=== PATIENT | female | born 1980 | race Caucasian/White ===

== ENCOUNTER 2020-02-23 19:21 | Observation (INO) | payer OTHER ==
[~2020-02-23] VITALS: Ht 154.9 cm; Wt 67.1 kg
[2020-02-23 20:47] VITALS: BP 103/63
== END 2020-02-23 21:45 | disposition home or self-care (01) ==
LOC: MLD 19:21
PROVIDERS: ADMIT Obstetrics & Gynecology; ATTEND Obstetrics & Gynecology
DX: O26.852 Spotting complicating pregnancy, second trimester (principal); O26.892 Other specified pregnancy related conditions, second trimester; R10.9 Unspecified abdominal pain; Z3A.21 21 weeks gestation of pregnancy
CPT/HCPCS: 76817; 81000; G0378; Q0092

== ENCOUNTER 2020-04-12 02:25 | Observation (INO) | payer OTHER ==
[~2020-04-12] VITALS: Ht 154.9 cm; Wt 73.9 kg
== END 2020-04-12 05:30 | disposition home or self-care (01) ==
LOC: MLD 02:25
PROVIDERS: ADMIT Obstetrics & Gynecology; ATTEND Obstetrics & Gynecology
DX: O36.8130 Decreased fetal movements, third trimester, not applicable or unspecified (principal); O26.893 Other specified pregnancy related conditions, third trimester; R10.9 Unspecified abdominal pain; O09.523 Supervision of elderly multigravida, third trimester; Z88.6 Allergy status to analgesic agent; Z3A.28 28 weeks gestation of pregnancy; X99.1XXA Assault by knife, initial encounter; Y93.89 Activity, other specified; Y92.009 Unspecified place in unspecified non-institutional (private) residence as the place of occurrence of the external cause; Y99.8 Other external cause status
CPT/HCPCS: 76805; 81000; G0378; Q0092

== ENCOUNTER 2020-06-06 17:05 | Observation (INO) | payer OTHER, SELFPAY ==
[~2020-06-06] VITALS: Ht 154.9 cm; Wt 74.4 kg
[~2020-06-06 17:05] MED LIST: FERR-212 PO; PREN-537 PO
[2020-06-06 17:40] VITALS: BP 98/66
[2020-06-06] MEDS ORDERED: LACTATED RINGERS 1,000 ML IV SCH (18:05)
[2020-06-06 18:37] LABS: BASOPHILS # (AUTO) 0.1 K/uL (0.00-0.22); BASOPHILS % (AUTO) 0.7 % (0.0-2.0); EOSINOPHILS # (AUTO) 0.1 K/uL (0-0.4); EOSINOPHILS % (AUTO) 0.7 % (0.0-4.0); HEMATOCRIT 36.1 % (36-48); HEMOGLOBIN 12.1 g/dL (12.0-16.0); LYMPHOCYTES # (AUTO) 1.3 K/uL (2.5-16.5); LYMPHOCYTES % (AUTO) 13.4 % (20.5-51.1); MEAN CORPUSCULAR HEMOGLOBIN 28 pg (27-31); MEAN CORPUSCULAR HGB CONC 33 g/dL (33-37); MEAN CORPUSCULAR VOLUME 84.8 fL (80-94); MONOCYTES # (AUTO) 0.7 K/uL (0.8-1.0); MONOCYTES % (AUTO) 7.2 % (1.7-9.3); NEUTROPHILS # (AUTO) 7.5 K/uL (1.8-7.7); PLATELET COUNT (AUTO) 249 K/uL (140-450); RED BLOOD CELL COUNT(AUTO) 4.26 MIL/uL (4.20-5.40); RED CELL DISTRIBUTION WIDTH 14.1 % (11.6-13.7); WHITE BLOOD COUNT (AUTO) 9.6 K/uL (4.8-10.8)
[2020-06-06 18:37] LABS: APPEARANCE,URINE CLEAR (CLEAR); BILIRUBIN,URINE NEGATIVE (NEGATIVE); BLOOD, URINE NEGATIVE (NEGATIVE); COLOR,URINE YELLOW (YELLOW); LEUKOCYTE ESTERASE ,URINE NEGATIVE (NEGATIVE); NITRITE, URINE NEGATIVE (NEGATIVE); UGLUCOSE NEGATIVE (NEGATIVE)
[2020-06-06] MEDS ORDERED: NIFEdipine 10 MG CAPLF ONE (19:01)
[2020-06-06 19:05] LABS: ALBUMIN 2.8 g/dL (3.4-5.0); ANION GAP 13.9 (8-16); CARBON DIOXIDE 24.9 mmol/L (21-32); CREATININE 0.5 mg/dL (0.6-1.3); POTASSIUM 3.8 mmol/L (3.5-5.1); TOTAL BILIRUBIN 0.2 mg/dL (0.0-1.0)
[2020-06-07] MEDS: NIFEdipine 10 MG CAPLF PO SCH ×2 (01:00→06:58)
== END 2020-06-07 09:15 | disposition home or self-care (01) ==
LOC: MLD 17:05
PROVIDERS: ADMIT Obstetrics & Gynecology; ATTEND Obstetrics & Gynecology
DX: O60.03 Preterm labor without delivery, third trimester (principal); Z20.828 Contact with and (suspected) exposure to other viral communicable diseases; O40.3XX0 Polyhydramnios, third trimester, not applicable or unspecified; O09.523 Supervision of elderly multigravida, third trimester; Z3A.36 36 weeks gestation of pregnancy
CPT/HCPCS: 36415; 59025; 80053; 81003; 85025; 86592; 86886; 86900; 86901; 87426; G0378; J7120

== ENCOUNTER 2020-06-12 22:42 | Inpatient (IN) | payer OTHER, SELFPAY ==
[~2020-06-12] VITALS: Ht 154.9 cm; Wt 74.4 kg
[2020-06-12] MEDS ORDERED: OXYTOCIN 20 UNITS in NACL 0.9% 1,000 ML IV SCH (23:10)
[2020-06-12] MEDS ORDERED: MORPHINE SULFATE 4 MG/ML SYR IVP PRN (23:30)
[2020-06-12] MEDS ORDERED: OXYTOCIN 20 UNITS in LACTATED RINGERS 1,000 ML IM SCH (23:30)
[2020-06-12] MEDS ORDERED: ONDANSETRON 4 MG/2 ML VIAL IVP PRN (23:30)
[2020-06-12 23:39] LABS: BASOPHILS % (AUTO) 0.5 % (0.0-2.0); EOSINOPHILS % (AUTO) 0.4 % (0.0-4.0); HEMATOCRIT 32.5 % (36-48); HEMOGLOBIN 11.2 g/dL (12.0-16.0); LYMPHOCYTES # (AUTO) 1.2 K/uL (2.5-16.5); LYMPHOCYTES % (AUTO) 13.8 % (20.5-51.1); MEAN CORPUSCULAR HEMOGLOBIN 29 pg (27-31); MEAN CORPUSCULAR HGB CONC 35 g/dL (33-37); MEAN CORPUSCULAR VOLUME 83.1 fL (80-94); MONOCYTES # (AUTO) 0.8 K/uL (0.8-1.0); MONOCYTES % (AUTO) 8.8 % (1.7-9.3); NEUTROPHILS # (AUTO) 6.7 K/uL (1.8-7.7); NEUTROPHILS % (AUTO) 76.5 % (42.2-75.2); PLATELET COUNT (AUTO) 230 K/uL (140-450); RED BLOOD CELL COUNT(AUTO) 3.91 MIL/uL (4.20-5.40); WHITE BLOOD COUNT (AUTO) 8.8 K/uL (4.8-10.8)
[2020-06-12 23:39] LABS: APPEARANCE,URINE CLEAR (CLEAR); BILIRUBIN,URINE NEGATIVE (NEGATIVE); BLOOD, URINE TRACE-I (NEGATIVE); COLOR,URINE YELLOW (YELLOW); LEUKOCYTE ESTERASE ,URINE NEGATIVE (NEGATIVE); NITRITE, URINE NEGATIVE (NEGATIVE); UGLUCOSE NEGATIVE (NEGATIVE)
[2020-06-12] MEDS: LACTATED RINGERS 1,000 ML IV SCH (23:51)
[2020-06-12 23:57] LABS: ALBUMIN 2.7 g/dL (3.4-5.0); CARBON DIOXIDE 21.4 mmol/L (21-32); CREATININE 0.7 mg/dL (0.6-1.3); POTASSIUM 3.4 mmol/L (3.5-5.1); TOTAL BILIRUBIN 0.2 mg/dL (0.0-1.0)
[2020-06-12 23:59] LABS: RBC,URINE 0-5 /HPF (0-5); WBC,URINE 0-5 /HPF (0-5)
[2020-06-12] MEDS ORDERED: AMPICILLIN 2,000 MG VIAL ONE (23:59)
[2020-06-13] MEDS ORDERED: AMPICILLIN 2,000 MG in NACL 0.9% 100 ML IV SCH ×2
[2020-06-13] MEDS ORDERED: MISOPROSTOL 25 MCG TAB VG PRN
[2020-06-13 01:07] VITALS: BP 109/67
[2020-06-13] MEDS ORDERED: AMPICILLIN 1,000 MG VIAL ONE ×2 (03:31→07:37)
[2020-06-13] MEDS ORDERED: OXYTOCIN 20 UNITS/LR PREMIX 1,000 ML IV ONE (03:36)
[2020-06-13] MEDS ORDERED: LIDOCAINE MPF 1% 10 MG/ML VIAL INJ SCH (03:45)
[2020-06-13] MEDS ORDERED: METHYLERGONOVINE 0.2 MG/ML AMP IM SCH (03:45)
[2020-06-13] MEDS ORDERED: AMPICILLIN 1,000 MG in NACL 0.9% 50 ML IV SCH (04:00)
[2020-06-13] MEDS: LACTATED RINGERS 1,000 ML IV SCH (08:01)
--- NOTE | 2020-06-13 09:17 | NUR ---
PATIENT HAS BEEN SCREENED AND CATEGORIZED LOW NUTRITION RISK. PATIENT WILL BE SEEN WITHIN 7 DAYS OF ADMISSION. 06/19/[address]
[2020-06-13] MEDS ORDERED: LIDOCAINE 1% 500 MG/50 ML VIAL ONE (11:39)
[2020-06-13] MEDS ORDERED: DOCUSATE SODIUM 100 MG GELCAP PO PRN (13:25)
[2020-06-13] MEDS ORDERED: bisacodyL 5 MG TABEC PO PRN (13:25)
[2020-06-13] MEDS ORDERED: METHYLERGONOVINE 0.2 MG TAB PO PRN (13:25)
[2020-06-13] MEDS ORDERED: IBUPROFEN 800 MG TAB PO PRN (13:25)
[2020-06-13] MEDS ORDERED: MEASLES, MUMPS, AND RUBELLA 1 VIAL SQVAC PRN (13:25)
[2020-06-13] MEDS ORDERED: METHYLERGONOVINE 0.2 MG/ML AMP IM PRN (13:25)
[2020-06-13] MEDS ORDERED: SIMETHICONE 80 MG TAB.CHEW PO PRN (13:25)
[2020-06-13] MEDS ORDERED: OXYTOCIN 10 UNITS/ML VIAL IM PRN (13:25)
[2020-06-13] MEDS ORDERED: BENZOCAINE/MENTHOL 20%-0.5% 60 GM CAN TP PRN (13:25)
[2020-06-13] MEDS ORDERED: IBUPROFEN 600 MG TAB PO PRN (13:25)
[2020-06-13] MEDS ORDERED: FLU VACCINE QS2020-21 0.5 ML SYR IMVAC PRN (22:05)
[2020-06-14 08:16] LABS: HEMATOCRIT 32.4 % (36-48); HEMOGLOBIN 11.1 g/dL (12.0-16.0)
== END 2020-06-14 15:30 | disposition home or self-care (01) | DRG 560 ==
LOC: MLD 22:42 → MFCC 06-13 14:15
PROVIDERS: ADMIT Obstetrics & Gynecology; ATTEND Obstetrics & Gynecology
PROC: 10E0XZZ Delivery of Products of Conception, External Approach (ICD-10-PCS; principal; 2020-06-13)
PROC: 3E033VJ Introduction of Other Hormone into Peripheral Vein, Percutaneous Approach (ICD-10-PCS; 2020-06-13)
PROC: 0HQ9XZZ Repair Perineum Skin, External Approach (ICD-10-PCS; 2020-06-13)
PROC: 10907ZC Drainage of Amniotic Fluid, Therapeutic from Products of Conception, Via Natural or Artificial Opening (ICD-10-PCS; 2020-06-13)
PROC: 3E02340 Introduction of Influenza Vaccine into Muscle, Percutaneous Approach (ICD-10-PCS; 2020-06-13)
PROC: 3E0234Z Introduction of Serum, Toxoid and Vaccine into Muscle, Percutaneous Approach (ICD-10-PCS; 2020-06-13)
PROC: 3E0134Z Introduction of Serum, Toxoid and Vaccine into Subcutaneous Tissue, Percutaneous Approach (ICD-10-PCS; 2020-06-13)
DX: O70.0 First degree perineal laceration during delivery (principal); O40.3XX0 Polyhydramnios, third trimester, not applicable or unspecified; O99.824 Streptococcus B carrier state complicating childbirth; O99.02 Anemia complicating childbirth; Z3A.36 36 weeks gestation of pregnancy; Z37.0 Single live birth; D62 Acute posthemorrhagic anemia; O60.14X0 Preterm labor third trimester with preterm delivery third trimester, not applicable or unspecified; Z23 Encounter for immunization; Z88.6 Allergy status to analgesic agent
CPT/HCPCS: 36415; 59409; 76815; 80053; 81001; 85018; 85025; 86592; 86886; 86900; 86901; 87653-90; 90715; J0290; J2001; J2270; J2405; J2590; J7120; Q0092

== ENCOUNTER 2021-07-06 19:50 | Observation (INO) | payer OTHER, SELFPAY ==
[~2021-07-06] VITALS: Ht 154.9 cm; Wt 67.6 kg
[2021-07-06 20:40] VITALS: BP 97/54
[2021-07-06] MEDS: BETAMETH ACET/BETAMETH NA PH 30 MG/5 ML VIAL IM SCH (20:54)
[2021-07-06] MEDS ORDERED: BETAMETH ACET/BETAMETH NA PH 30 MG/5 ML VIAL IM SCH (21:00)
[2021-07-06 21:12] LABS: BASOPHILS % (AUTO) 0.2 % (0.0-2.0); EOSINOPHILS # (AUTO) 0.1 K/uL (0-0.4); EOSINOPHILS % (AUTO) 1.3 % (0.0-4.0); HEMATOCRIT 32.1 % (36-48); HEMOGLOBIN 11.1 g/dL (12.0-16.0); LYMPHOCYTES # (AUTO) 1.3 K/uL (2.5-16.5); LYMPHOCYTES % (AUTO) 15.6 % (20.5-51.1); MEAN CORPUSCULAR HEMOGLOBIN 29 pg (27-31); MEAN CORPUSCULAR HGB CONC 35 g/dL (33-37); MEAN CORPUSCULAR VOLUME 84.8 fL (80-94); MONOCYTES # (AUTO) 0.5 K/uL (0.8-1.0); MONOCYTES % (AUTO) 6.7 % (1.7-9.3); NEUTROPHILS # (AUTO) 6.2 K/uL (1.8-7.7); NEUTROPHILS % (AUTO) 76.2 % (42.2-75.2); PLATELET COUNT (AUTO) 253 K/uL (140-450); RED BLOOD CELL COUNT(AUTO) 3.78 MIL/uL (4.20-5.40); RED CELL DISTRIBUTION WIDTH 14.1 % (11.6-13.7); WHITE BLOOD COUNT (AUTO) 8.2 K/uL (4.8-10.8)
[2021-07-06 21:29] LABS: ALBUMIN 2.7 g/dL (3.4-5.0); ANION GAP 11.3 (8-16); CARBON DIOXIDE 26.3 mmol/L (21-32); CREATININE 0.5 mg/dL (0.6-1.3); POTASSIUM 3.6 mmol/L (3.5-5.1); TOTAL BILIRUBIN 0.2 mg/dL (0.0-1.0)
[2021-07-06 21:47] LABS: APPEARANCE,URINE CLEAR (CLEAR); BILIRUBIN,URINE NEGATIVE (NEGATIVE); BLOOD, URINE TRACE-I (NEGATIVE); COLOR,URINE YELLOW (YELLOW); LEUKOCYTE ESTERASE ,URINE 1+ (NEGATIVE); NITRITE, URINE NEGATIVE (NEGATIVE); PH,URINE 6.5 (5.0-9.0); UGLUCOSE NEGATIVE (NEGATIVE)
[2021-07-06 21:53] LABS: RBC,URINE 0-5 /HPF (0-5); WBC,URINE 0-5 /HPF (0-5)
--- NOTE | 2021-07-07 09:16 | NUR ---
PATIENT HAS BEEN SCREENED AND CATEGORIZED LOW NUTRITION RISK. PATIENT WILL BE SEEN WITHIN 7 DAYS OF ADMISSION. 07/13/[address]
[2021-07-07] MEDS: LACTATED RINGERS 1,000 ML IV SCH ×2 (09:54→17:51)
[2021-07-07] MEDS ORDERED: CEPH-588 PO (13:21)
[2021-07-07] MEDS ORDERED: BETAMETH ACET/BETAMETH NA PH 30 MG/5 ML VIAL IM ONE (20:24)
[2021-07-07] MEDS: BETAMETH ACET/BETAMETH NA PH 30 MG/5 ML VIAL IM SCH (20:45)
== END 2021-07-07 21:25 | disposition home or self-care (01) ==
LOC: MLD 19:50
PROVIDERS: ADMIT Obstetrics & Gynecology; ATTEND Obstetrics & Gynecology
DX: O23.02 Infections of kidney in pregnancy, second trimester (principal); O09.512 Supervision of elderly primigravida, second trimester; O09.92 Supervision of high risk pregnancy, unspecified, second trimester; Z3A.26 26 weeks gestation of pregnancy
CPT/HCPCS: 36415; 59025; 80053; 81001; 85025; 86592; 87086; 87653; 96361; 96365; 96372; G0378; J0696; J0702; J7060

== ENCOUNTER 2021-08-29 14:03 | Observation (INO) | payer OTHER, SELFPAY ==
[~2021-08-29] VITALS: Ht 165.1 cm; Wt 69.9 kg
[~2021-08-29 14:03] MED LIST changes: +CEPH-588 PO
[2021-08-29 14:53] VITALS: BP 106/61
[2021-08-29] MEDS ORDERED: LACTATED RINGERS 1,000 ML IV SCH ×2 (15:20→16:20)
== END 2021-08-29 17:35 | disposition home or self-care (01) ==
LOC: MLD 14:03
PROVIDERS: ADMIT Obstetrics & Gynecology; ATTEND Obstetrics & Gynecology
DX: O62.9 Abnormality of forces of labor, unspecified (principal); Z20.822 Contact with and (suspected) exposure to COVID-19; O26.893 Other specified pregnancy related conditions, third trimester; L29.9 Pruritus, unspecified; Z3A.34 34 weeks gestation of pregnancy
CPT/HCPCS: 59025; 76817; 81000; 87426; 96360; G0378; Q0092; 36415

== ENCOUNTER 2022-07-27 10:45 | Emergency (ER) | payer OTHER ==
[~2022-07-27] VITALS: Ht 154.9 cm; Wt 73.5 kg
[~2022-07-27 10:45] MED LIST changes: -CEPH-588 PO; -FERR-212 PO
[2022-07-27 11:18] VITALS: BP 100/74
[2022-07-27 12:10] LABS: BASOPHILS % (AUTO) 0.5 % (0.0-2.0); EOSINOPHILS # (AUTO) 0.1 K/uL (0-0.4); EOSINOPHILS % (AUTO) 1.4 % (0.0-4.0); HEMATOCRIT 37.4 % (36-48); HEMOGLOBIN 12.3 g/dL (12.0-16.0); LYMPHOCYTES # (AUTO) 1.5 K/uL (2.5-16.5); LYMPHOCYTES % (AUTO) 22.1 % (20.5-51.1); MEAN CORPUSCULAR HEMOGLOBIN 27 pg (27-31); MEAN CORPUSCULAR HGB CONC 33 g/dL (33-37); MEAN CORPUSCULAR VOLUME 81.3 fL (80-94); MONOCYTES # (AUTO) 0.4 K/uL (0.8-1.0); MONOCYTES % (AUTO) 6.4 % (1.7-9.3); NEUTROPHILS # (AUTO) 4.7 K/uL (1.8-7.7); NEUTROPHILS % (AUTO) 69.6 % (42.2-75.2); PLATELET COUNT (AUTO) 258 K/uL (140-450); RED CELL DISTRIBUTION WIDTH 13.4 % (11.6-13.7); WHITE BLOOD COUNT (AUTO) 6.7 K/uL (4.8-10.8)
[2022-07-27 12:16] LABS: APPEARANCE,URINE HAZY (CLEAR); BILIRUBIN,URINE NEGATIVE (NEGATIVE); BLOOD, URINE 3+ (NEGATIVE); COLOR,URINE YELLOW (YELLOW); LEUKOCYTE ESTERASE ,URINE 1+ (NEGATIVE); NITRITE, URINE NEGATIVE (NEGATIVE); UGLUCOSE NEGATIVE (NEGATIVE)
[2022-07-27 12:40] LABS: WBC,URINE 20-60 /HPF (0-5)
[2022-07-27 12:58] LABS: ALBUMIN 3.5 g/dL (3.4-5.0); ANION GAP 11.7 (8-16); CARBON DIOXIDE 28.1 mmol/L (21-32); CREATININE 0.6 mg/dL (0.6-1.3); POTASSIUM 3.8 mmol/L (3.5-5.1); TOTAL BILIRUBIN 0.3 mg/dL (0.0-1.0)
[2022-07-27] MEDS ORDERED: NITR100C7 PO (15:24)
[2022-07-27] MEDS ORDERED: NAPR-54 PO (15:24)
[2022-07-27 15:30] VITALS: BP 144/70
--- NOTE | 2022-07-27 15:31 | NUR ---
Patient discharged with v/s stable. Written and verbal after care instructions given and explained. Patient alert, oriented and verbalized understanding of instructions. Ambulatory with steady gait. All questions addressed prior to discharge. ID band removed. Patient advised to follow up with PMD. Rx of MACROBID, NAPROSYN given. Patient educated on indication of medication including possible reaction and side effects. Opportunity to ask questions provided and answered.
== END 2022-07-27 15:31 | disposition home or self-care (01) ==
LOC: MED 10:45
DX: N39.0 Urinary tract infection, site not specified (principal); R10.2 Pelvic and perineal pain
CPT/HCPCS: 36415; 80053; 81001; 81025; 83690; 85025; 87086; 99284

== ENCOUNTER 2022-10-28 08:58 | Emergency (ER) | payer OTHER ==
[~2022-10-28] VITALS: Ht 154.9 cm; Wt 72.6 kg
[~2022-10-28 08:58] MED LIST changes: +NAPR-54 PO; +NITR100C7 PO
[2022-10-28 09:01] VITALS: BP 123/72
--- NOTE | 2022-10-28 09:15 | NUR ---
Dr. Perez evaluating patient at bedside.
--- NOTE | 2022-10-28 09:18 | NUR ---
42 y/o female bib self with c/o right lower back pain x 2 months. Per patient, pain has been increasing and has difficulty ambulating and moving. Denies any trauma or injury. Patient denies any fever, shills or SOB. Medical History: Denies NKDA
[2022-10-28] MEDS ORDERED: KETOROLAC 30 MG/ML VIAL IM ONE (09:20)
--- NOTE | 2022-10-28 09:31 | NUR ---
Lab at bedside.
[2022-10-28 09:40] LABS: BASOPHILS % (AUTO) 0.4 % (0.0-2.0); EOSINOPHILS # (AUTO) 0.1 K/uL (0-0.4); EOSINOPHILS % (AUTO) 0.9 % (0.0-4.0); HEMATOCRIT 36.9 % (36-48); HEMOGLOBIN 12.4 g/dL (12.0-16.0); LYMPHOCYTES # (AUTO) 1.4 K/uL (2.5-16.5); LYMPHOCYTES % (AUTO) 19.2 % (20.5-51.1); MEAN CORPUSCULAR HEMOGLOBIN 27 pg (27-31); MEAN CORPUSCULAR HGB CONC 34 g/dL (33-37); MEAN CORPUSCULAR VOLUME 79.2 fL (80-94); MONOCYTES # (AUTO) 0.5 K/uL (0.8-1.0); MONOCYTES % (AUTO) 6.5 % (1.7-9.3); NEUTROPHILS # (AUTO) 5.1 K/uL (1.8-7.7); PLATELET COUNT (AUTO) 253 K/uL (140-450); RED BLOOD CELL COUNT(AUTO) 4.65 MIL/uL (4.20-5.40); RED CELL DISTRIBUTION WIDTH 14.6 % (11.6-13.7)
[2022-10-28 09:58] LABS: BILIRUBIN,URINE NEGATIVE (NEGATIVE); BLOOD, URINE 3+ (NEGATIVE); COLOR,URINE YELLOW (YELLOW); LEUKOCYTE ESTERASE ,URINE 1+ (NEGATIVE); NITRITE, URINE NEGATIVE (NEGATIVE); PH,URINE 8.5 (5.0-9.0); UGLUCOSE NEGATIVE (NEGATIVE)
[2022-10-28 10:00] LABS: ANION GAP 9.5 (8-16); CARBON DIOXIDE 30.1 mmol/L (21-32); CREATININE 0.6 mg/dL (0.6-1.3); POTASSIUM 3.6 mmol/L (3.5-5.1); TOTAL BILIRUBIN 0.2 mg/dL (0.0-1.0)
--- NOTE | 2022-10-28 10:08 | NUR ---
Patient was taken to CT via [facility].
[2022-10-28 10:11] LABS: APPEARANCE,URINE CLOUDY (CLEAR); RBC,URINE 11-20 (MOD) /HPF (0-5); WBC,URINE 60-80 /HPF (0-5)
--- NOTE | 2022-10-28 10:17 | NUR ---
Patient returned from CT.
[2022-10-28] MEDS ORDERED: HYDR-5191 PO (11:09)
[2022-10-28] MEDS ORDERED: IBUP-2213 PO (11:09)
[2022-10-28] MEDS ORDERED: MORPHINE SULFATE 4 MG/ML SYR IM ONE (11:10)
[2022-10-28] MEDS ORDERED: CEPH-588 PO (11:26)
[2022-10-28 12:01] VITALS: BP 102/64
--- NOTE | 2022-10-28 12:01 | NUR ---
Patient discharged with v/s stable. Written and verbal after care instructions given. Patient alert, oriented and verbalized understanding of instructions. Ambulatory with steady gait. All questions addressed prior to discharge. ID band removed. Patient advised to follow up with PMD. Rx of Keflex, Ibuprofen and Hydrocodone-Acetaminophen given. Opportunity to ask questions provided and answered.
--- NOTE | 2022-10-28 12:02 | NUR ---
The patient's care was reviewed and supervised by Anay Davila, RN, RN.
== END 2022-10-28 12:01 | disposition home or self-care (01) ==
LOC: MED 08:58
DX: R10.9 Unspecified abdominal pain (principal); M54.50 Low back pain, unspecified; Z79.82 Long term (current) use of aspirin; Z79.899 Other long term (current) drug therapy
CPT/HCPCS: 36415; 74176; 80053; 81001; 81025; 85025; 87086; 96372; 99285; J1885; J2270